=== PATIENT | female | born 1995 | race African-American/Black ===

== ENCOUNTER 2019-03-18 17:25 | Emergency (ER) | payer MEDICAID ==
[~2019-03-18] VITALS: Ht 180.3 cm; Wt 45.0 kg
[2019-03-18 19:35] VITALS: BP 128/81
[2019-03-18] MEDS ORDERED: AZITHROMYCIN 500 MG TABLET PO ONE (21:15)
[2019-03-18] MEDS ORDERED: CEFTRIAXONE SODIUM 250 MG/VIAL IM ONE (21:15)
[2019-03-21 07:12] LABS: CHLAMYDIA TRACHOMATIS NAA Negative (Negative); NEISSERIA GONORRHOEAE NAA Negative (Negative)
== END 2019-03-18 22:05 | disposition home or self-care (01) ==
LOC: ER 17:25
DX: N89.8 Other specified noninflammatory disorders of vagina (principal); R10.30 Lower abdominal pain, unspecified; G80.9 Cerebral palsy, unspecified; Z47.89 Encounter for other orthopedic aftercare
CPT/HCPCS: 87491; 87591; 99283